=== PATIENT | male | born 1995 ===

== ENCOUNTER 2021-12-15 10:06 | Inpatient (IN) | payer MEDICAID, OTHER ==
[2021-12-15] VITALS (37 sets, daily range): BP systolic 64–161; BP diastolic 25–110
[~2021-12-15] VITALS: Ht 175.3 cm; Wt 57.1 kg
[2021-12-15] MEDS ORDERED: NOREPINEPHRINE 8 MG/250ML KIT 250 ML IV ONE (10:15)
[2021-12-15] MEDS ORDERED: MIDAZOLAM DRIP 50 mg/50mL 50 ML IV ONE (10:16)
[2021-12-15 10:40] LABS: Urine WBC None Seen /hpf (0 - 3)
[2021-12-15] MEDS ORDERED: SODIUM BICARBONATE 8.4 % INJ 50ML VIAL IV ONE ×4 (10:44→16:00)
[2021-12-15] MEDS: NOREPINEPHRINE 8 MG/250ML KIT 250 ML IV SCH ×3 (10:45→21:56)
[2021-12-15 10:56] LABS: Albumin 2.2 g/dL (3.4-5.0); Calcium 9.3 mg/dL (8.5-10.1); Magnesium 3.9 mg/dL (1.6-2.6)
[2021-12-15 11:00] LABS: Bilirubin, Total 0.3 mg/dL (0.2-1.0); Total Protein 5.4 g/dL (6.4-8.2)
[2021-12-15] MEDS: MIDAZOLAM DRIP 50 mg/50mL 50 ML IV SCH ×2 (11:00→20:40)
[2021-12-15 11:15] LABS: Amphetamine Screen, Urine NEGATIVE (NEGATIVE); Barbiturate Scree,Urine NEGATIVE (NEGATIVE); Benzodiazephine Screen, Urine NEGATIVE (NEGATIVE); Cannabinoid Screen, Urine POSITIVE (NEGATIVE); Cocaine Screen, Urine POSITIVE (NEGATIVE); Phencyclidine Screen, Urine NEGATIVE (NEGATIVE)
[2021-12-15] MEDS ORDERED: DexAMETHasone SOD PHOS 10MG/1ML VIAL INJ IV ONE (11:15)
[2021-12-15 11:16] LABS: Basophils # (auto) 0 10 ^3/uL (0-0.2); Eosinophils # (auto) 0 10 ^3/uL (0-0.8); Hemoglobin 12.5 g/dL (13.5-17.5); Lymphocytes # (auto) 1.4 10 ^3/uL (0.4-5.4); Monocytes # (auto) 0.7 10 ^3/uL (0-1.3); Neutrophils # (auto) 8.4 10 ^3/uL (1.6-8.6); Neutrophils % (auto) 79.7 % (37.0-80.0); Nucleated Red Blood Cells % 0.2 %; Red Blood Cells 4.29 10^6/uL (4.5-5.90); White Blood Cell 10.5 10^3/uL (4.4-10.8)
[2021-12-15 11:21] LABS: Basophils % (auto) 0.2 % (0.0-2.0); Eosinophils % (auto) 0.4 % (0.0-7.0); Hematocrit 41.3 % (41.0-53.0); Lymphocytes % (auto) 12.9 % (10.0-50.0); Mean Corpuscular Hgb Conc. 30.2 g/dL (32.0-36.0); Mean Corpuscular Volume 96.1 fL (80.0-100.0); Monocytes % (auto) 6.8 % (0.0-12.0); Red Cell Distribution Width 13.6 % (11.8-14.3)
[2021-12-15 11:22] LABS: Opiate Scree,Urine NEGATIVE (NEGATIVE)
[2021-12-15 11:43] LABS: Urine Bacteria NONE SEEN /hpf (None Seen); Urine Blood TRACE /uL (Negative); Urine Mucus FEW (None Seen); Urine Specific Gravity 1.026 (1.001-1.035); Urine Sperm PRESENT /hpf (None Seen)
[2021-12-15 12:09] LABS: Potassium 6.1 mmol/L (3.5-5.1)
[2021-12-15 12:10] LABS: BUN/Creatinine Ratio 5.8
[2021-12-15] MEDS ORDERED: PIPERACILLIN-TAZO 4.5GM 100 ML IV ONE (13:15)
[2021-12-15] MEDS: SODIUM BICARBONATE 50ML VIAL 50 ML in SOD CHL 0.45% 1,000 ML IV SCH (14:15)
[2021-12-15] MEDS ORDERED: ALBUTEROL SULF 2.5 MG/0.5ML(0.5%) NEB SOLN NEB ONE (15:15)
[2021-12-15] MEDS ORDERED: CALCIUM CHL 100MG/ML 1,000 MG in D5W 5% 100 ML IV ONE (15:15)
[2021-12-15 16:11] LABS: BUN/Creatinine Ratio 9.3; Calcium 6.9 mg/dL (8.5-10.1)
[2021-12-15] MEDS: VASOPRESSIN 50 UNITS in D5W 5% 247.5 ML IV SCH (16:15)
[2021-12-15 16:38] LABS: Potassium 5.8 mmol/L (3.5-5.1)
[2021-12-15 16:42] LABS: Lipase 128 U/L (73-393)
[2021-12-15 16:44] LABS: INR 1.88 (0.9-1.15)
[2021-12-15 17:01] LABS: Creatine Kinase IFCC 4531 U/L (39-308)
[2021-12-15] MEDS: PROPOFOL 100 ML IV SCH (20:00)
[2021-12-15] MEDS: PHENYLEPHRINE IV 250 ML IV SCH (20:00)
[2021-12-16] VITALS (105 sets, daily range): BP systolic 105–160; BP diastolic 46–98
[2021-12-16] MEDS: PHENYLEPHRINE IV 250 ML IV SCH ×3 (00:20→17:00)
[2021-12-16] MEDS: MIDAZOLAM DRIP 50 mg/50mL 50 ML IV SCH ×2 (02:48→09:57)
[2021-12-16] MEDS: NOREPINEPHRINE 8 MG/250ML KIT 250 ML IV SCH (03:40)
[2021-12-16 03:55] LABS: Basophils # (auto) 0 10 ^3/uL (0-0.2); Basophils % (auto) 0.2 % (0.0-2.0); Eosinophils # (auto) 0 10 ^3/uL (0-0.8); Hematocrit 39.3 % (41.0-53.0); Hemoglobin 12.9 g/dL (13.5-17.5); Lymphocytes # (auto) 0.6 10 ^3/uL (0.4-5.4); Lymphocytes % (auto) 3.3 % (10.0-50.0); Mean Corpuscular Hgb Conc. 32.9 g/dL (32.0-36.0); Mean Corpuscular Volume 87.9 fL (80.0-100.0); Monocytes # (auto) 0.4 10 ^3/uL (0-1.3); Monocytes % (auto) 2.1 % (0.0-12.0); Neutrophils # (auto) 17.8 10 ^3/uL (1.6-8.6); Neutrophils % (auto) 94.4 % (37.0-80.0); Red Blood Cells 4.47 10^6/uL (4.5-5.90); Red Cell Distribution Width 12.7 % (11.8-14.3); White Blood Cell 18.9 10^3/uL (4.4-10.8)
[2021-12-16 04:11] LABS: Albumin 2.5 g/dL (3.4-5.0); Calcium 7.4 mg/dL (8.5-10.1); Magnesium 1.8 mg/dL (1.6-2.6); Potassium 4.6 mmol/L (3.5-5.1)
[2021-12-16 04:29] LABS: Bilirubin, Total 0.4 mg/dL (0.2-1.0); Total Protein 5.3 g/dL (6.4-8.2)
[2021-12-16] MEDS: SODIUM BICARBONATE 50ML VIAL 50 ML in SOD CHL 0.45% 1,000 ML IV SCH (05:55)
[2021-12-16] MEDS: SODIUM CHLORIDE 0.9% 1,000 ML IV SCH ×3 (09:58→22:24)
[2021-12-16] MEDS: PIPERACILLIN-TAZOB 3.375GM 100 ML IV SCH ×2 (09:58→18:19)
[2021-12-16] MEDS ORDERED: FUROSEMIDE 100 MG/10ML VIAL IV ONE (11:45)
[2021-12-16] MEDS: PROPOFOL 100 ML IV SCH (13:45)
[2021-12-16] MEDS: VASOPRESSIN 50 UNITS in D5W 5% 247.5 ML IV SCH (15:27)
[2021-12-16] MEDS: ALBUTEROL SULF 2.5 MG/0.5ML(0.5%) NEB SOLN NEB SCH ×2 (18:51→23:47)
[2021-12-16] MEDS: IPRATROPIUM BROM 0.5 MG/2.5ML INH SOL NEB SCH ×2 (18:51→23:47)
[2021-12-17] VITALS (100 sets, daily range): BP systolic 115–155; BP diastolic 51–100
[2021-12-17] MEDS: PIPERACILLIN-TAZOB 3.375GM 100 ML IV SCH ×2 (00:31→08:18)
[2021-12-17 04:48] LABS: Basophils # (auto) 0 10 ^3/uL (0-0.2); Basophils % (auto) 0.1 % (0.0-2.0); Eosinophils # (auto) 0 10 ^3/uL (0-0.8); Eosinophils % (auto) 0.1 % (0.0-7.0); Hemoglobin 11.4 g/dL (13.5-17.5); Lymphocytes # (auto) 0.3 10 ^3/uL (0.4-5.4); Lymphocytes % (auto) 1.2 % (10.0-50.0); Mean Corpuscular Hemoglobin 28.6 pg (28.0-32.0); Mean Corpuscular Hgb Conc. 33.5 g/dL (32.0-36.0); Mean Corpuscular Volume 85.5 fL (80.0-100.0); Monocytes # (auto) 0.8 10 ^3/uL (0-1.3); Monocytes % (auto) 3.2 % (0.0-12.0); Neutrophils # (auto) 22.5 10 ^3/uL (1.6-8.6); Neutrophils % (auto) 95.4 % (37.0-80.0); Nucleated Red Blood Cells % 0.1 %; Red Blood Cells 3.97 10^6/uL (4.5-5.90); Red Cell Distribution Width 12.8 % (11.8-14.3); White Blood Cell 23.6 10^3/uL (4.4-10.8)
[2021-12-17 04:56] LABS: Albumin 2.4 g/dL (3.4-5.0); Calcium 6.8 mg/dL (8.5-10.1); Potassium 4.9 mmol/L (3.5-5.1)
[2021-12-17 05:23] LABS: Bilirubin, Total 0.6 mg/dL (0.2-1.0); Total Protein 5.3 g/dL (6.4-8.2)
[2021-12-17] MEDS: SODIUM CHLORIDE 0.9% 1,000 ML IV SCH (05:32)
[2021-12-17] MEDS ORDERED: BUMETANIDE 2.5mg/10ml (0.25 mg/ml) INJ IV ONE (06:15)
[2021-12-17] MEDS: ALBUTEROL SULF 2.5 MG/0.5ML(0.5%) NEB SOLN NEB SCH ×4 (06:25→23:05)
[2021-12-17] MEDS: IPRATROPIUM BROM 0.5 MG/2.5ML INH SOL NEB SCH ×4 (06:25→23:05)
[2021-12-17] MEDS: MIDAZOLAM DRIP 50 mg/50mL 50 ML IV SCH ×2 (09:04→16:33)
[2021-12-17] MEDS: PHENYLEPHRINE IV 250 ML IV SCH ×3 (09:04→18:00)
[2021-12-17] MEDS: NOREPINEPHRINE 8 MG/250ML KIT 250 ML IV SCH (10:45)
[2021-12-17] MEDS: PROPOFOL 100 ML IV SCH (13:45)
[2021-12-17 15:08] LABS: Hepatitis C Antibody Negative (Negative)
[2021-12-17 15:09] LABS: Hepatitis A Ab IgM Negative; Hepatitis B Core IgM Negative
[2021-12-17] MEDS: VASOPRESSIN 50 UNITS in D5W 5% 247.5 ML IV SCH (16:15)
[2021-12-17] MEDS: PIPERACILLIN-TAZOB 2.25GM 50 ML IV SCH (18:21)
[2021-12-18] VITALS (106 sets, daily range): BP systolic 90–206; BP diastolic 31–127
[2021-12-18] MEDS: PIPERACILLIN-TAZOB 2.25GM 50 ML IV SCH ×3 (01:37→17:42)
[2021-12-18] MEDS: PHENYLEPHRINE IV 250 ML IV SCH ×3 (01:38→19:00)
[2021-12-18 04:43] LABS: Basophils # (auto) 0 10 ^3/uL (0-0.2); Basophils % (auto) 0.2 % (0.0-2.0); Eosinophils # (auto) 0 10 ^3/uL (0-0.8); Eosinophils % (auto) 0.1 % (0.0-7.0); Hematocrit 31.2 % (41.0-53.0); Hemoglobin 10.3 g/dL (13.5-17.5); Lymphocytes # (auto) 0.3 10 ^3/uL (0.4-5.4); Lymphocytes % (auto) 1.4 % (10.0-50.0); Mean Corpuscular Hemoglobin 28.5 pg (28.0-32.0); Mean Corpuscular Volume 86.3 fL (80.0-100.0); Monocytes # (auto) 0.9 10 ^3/uL (0-1.3); Neutrophils # (auto) 21.7 10 ^3/uL (1.6-8.6); Neutrophils % (auto) 94.3 % (37.0-80.0); Nucleated Red Blood Cells % 0.1 %; Red Blood Cells 3.62 10^6/uL (4.5-5.90); Red Cell Distribution Width 12.8 % (11.8-14.3)
[2021-12-18] MEDS: MIDAZOLAM DRIP 50 mg/50mL 50 ML IV SCH ×2 (05:03→14:00)
[2021-12-18 05:27] LABS: Albumin 2.2 g/dL (3.4-5.0); Bilirubin, Total 0.6 mg/dL (0.2-1.0); Total Protein 5.2 g/dL (6.4-8.2)
[2021-12-18] MEDS: ALBUTEROL SULF 2.5 MG/0.5ML(0.5%) NEB SOLN NEB SCH ×3 (05:59→18:35)
[2021-12-18] MEDS: IPRATROPIUM BROM 0.5 MG/2.5ML INH SOL NEB SCH ×3 (06:00→18:35)
[2021-12-18 08:24] LABS: INR 1.19 (0.9-1.15)
[2021-12-18] MEDS ORDERED: HEPARIN 1,000 UNITS/ml 1ML VIAL ONE (10:21)
[2021-12-18] MEDS: NOREPINEPHRINE 8 MG/250ML KIT 250 ML IV SCH (10:45)
[2021-12-18] MEDS ORDERED: SODIUM CHL 0.9% 1000 ML BAG XX ONE (12:45)
[2021-12-18] MEDS: PROPOFOL 100 ML IV SCH (13:45)
[2021-12-18] MEDS: VASOPRESSIN 50 UNITS in D5W 5% 247.5 ML IV SCH (16:15)
[2021-12-18 17:01] LABS: Calcium 7.6 mg/dL (8.5-10.1); Potassium 4.1 mmol/L (3.5-5.1)
[2021-12-19] VITALS (108 sets, daily range): BP systolic 119–192; BP diastolic 59–109
[2021-12-19] MEDS: IPRATROPIUM BROM 0.5 MG/2.5ML INH SOL NEB SCH ×4 (00:13→18:17)
[2021-12-19] MEDS: ALBUTEROL SULF 2.5 MG/0.5ML(0.5%) NEB SOLN NEB SCH ×4 (00:13→18:17)
[2021-12-19] MEDS: PIPERACILLIN-TAZOB 2.25GM 50 ML IV SCH ×3 (01:50→17:37)
[2021-12-19] MEDS: PHENYLEPHRINE IV 250 ML IV SCH ×3 (01:58→20:00)
[2021-12-19 04:10] LABS: Basophils # (auto) 0 10 ^3/uL (0-0.2); Basophils % (auto) 0.1 % (0.0-2.0); Eosinophils # (auto) 0 10 ^3/uL (0-0.8); Hematocrit 28.6 % (41.0-53.0); Hemoglobin 9.9 g/dL (13.5-17.5); Lymphocytes # (auto) 0.8 10 ^3/uL (0.4-5.4); Lymphocytes % (auto) 4.6 % (10.0-50.0); Mean Corpuscular Hemoglobin 29.2 pg (28.0-32.0); Mean Corpuscular Hgb Conc. 34.5 g/dL (32.0-36.0); Mean Corpuscular Volume 84.7 fL (80.0-100.0); Monocytes % (auto) 5.7 % (0.0-12.0); Neutrophils # (auto) 15.8 10 ^3/uL (1.6-8.6); Neutrophils % (auto) 89.6 % (37.0-80.0); Nucleated Red Blood Cells % 0.2 %; Red Blood Cells 3.38 10^6/uL (4.5-5.90); Red Cell Distribution Width 12.9 % (11.8-14.3); White Blood Cell 17.7 10^3/uL (4.4-10.8)
[2021-12-19 04:26] LABS: Albumin 2.2 g/dL (3.4-5.0); Calcium 7.8 mg/dL (8.5-10.1); Magnesium 2.4 mg/dL (1.6-2.6); Potassium 3.9 mmol/L (3.5-5.1)
[2021-12-19 04:36] LABS: Bilirubin, Total 0.6 mg/dL (0.2-1.0); Phosphorus 5.1 mg/dL (2.5-4.90); Total Protein 5.2 g/dL (6.4-8.2)
[2021-12-19 04:46] LABS: BUN/Creatinine Ratio 8.8
[2021-12-19] MEDS ORDERED: hydrALAZINE HCL 20 MG/ML VL ONE (04:54)
[2021-12-19] MEDS ORDERED: hydrALAZINE HCL 20 MG/ML VL IV ONE (05:00)
[2021-12-19] MEDS: ENOXAPARIN SOD 80 MG/0.8ML SYRINGE SC SCH (09:36)
[2021-12-19] MEDS: NOREPINEPHRINE 8 MG/250ML KIT 250 ML IV SCH (09:38)
[2021-12-19] MEDS ORDERED: FUROSEMIDE 100 MG/10ML VIAL IV ONE ×2 (10:15→18:00)
[2021-12-19] MEDS: PROPOFOL 100 ML IV SCH (12:02)
[2021-12-19] MEDS: VASOPRESSIN 50 UNITS in D5W 5% 247.5 ML IV SCH (15:53)
[2021-12-20] VITALS (69 sets, daily range): BP systolic 89–129; BP diastolic 37–66
[2021-12-20] MEDS: IPRATROPIUM BROM 0.5 MG/2.5ML INH SOL NEB SCH ×3 (00:11→18:33)
[2021-12-20] MEDS: ALBUTEROL SULF 2.5 MG/0.5ML(0.5%) NEB SOLN NEB SCH ×3 (00:11→18:33)
[2021-12-20] MEDS: PIPERACILLIN-TAZOB 2.25GM 50 ML IV SCH ×3 (02:27→17:49)
[2021-12-20] MEDS: PHENYLEPHRINE IV 250 ML IV SCH (04:20)
[2021-12-20 04:28] LABS: Calcium 8.1 mg/dL (8.5-10.1)
[2021-12-20 04:31] LABS: BUN/Creatinine Ratio 9.1
[2021-12-20] MEDS ORDERED: SODIUM CHL 0.9% 1000 ML BAG XX ONE (07:00)
[2021-12-20] MEDS: NOREPINEPHRINE 8 MG/250ML KIT 250 ML IV SCH (07:00)
[2021-12-20] MEDS: ENOXAPARIN SOD 80 MG/0.8ML SYRINGE SC SCH (09:22)
[2021-12-20] MEDS: PROPOFOL 100 ML IV SCH (13:45)
[2021-12-20] MEDS ORDERED: LIDOCAINE 1% (LOCAL ANESTH.) PF 5ml SDV ID ONE (16:45)
[2021-12-20] MEDS: SODIUM CHLOR 0.9% PF (SALINE LOCK) 10ML VIAL/SYR IV SCH (21:31)
[2021-12-21] VITALS (59 sets, daily range): BP systolic 111–157; BP diastolic 56–85
[2021-12-21] MEDS: IPRATROPIUM BROM 0.5 MG/2.5ML INH SOL NEB SCH ×5 (00:28→18:15)
[2021-12-21] MEDS: ALBUTEROL SULF 2.5 MG/0.5ML(0.5%) NEB SOLN NEB SCH ×5 (00:28→18:15)
[2021-12-21] MEDS: PIPERACILLIN-TAZOB 2.25GM 50 ML IV SCH ×3 (02:10→17:27)
[2021-12-21 04:53] LABS: Basophils # (auto) 0 10 ^3/uL (0-0.2); Basophils % (auto) 0.1 % (0.0-2.0); Eosinophils # (auto) 0.2 10 ^3/uL (0-0.8); Eosinophils % (auto) 1.7 % (0.0-7.0); Hemoglobin 9.5 g/dL (13.5-17.5)
[2021-12-21 04:56] LABS: Hematocrit 27.6 % (41.0-53.0); Lymphocytes # (auto) 1.2 10 ^3/uL (0.4-5.4); Lymphocytes % (auto) 9.7 % (10.0-50.0); Mean Corpuscular Hemoglobin 29.3 pg (28.0-32.0); Mean Corpuscular Hgb Conc. 34.4 g/dL (32.0-36.0); Mean Corpuscular Volume 85.2 fL (80.0-100.0); Monocytes # (auto) 1.5 10 ^3/uL (0-1.3); Monocytes % (auto) 12.6 % (0.0-12.0); Neutrophils % (auto) 75.9 % (37.0-80.0); Nucleated Red Blood Cells % 0.1 %; Red Blood Cells 3.24 10^6/uL (4.5-5.90); Red Cell Distribution Width 12.7 % (11.8-14.3); White Blood Cell 11.8 10^3/uL (4.4-10.8)
[2021-12-21 05:06] LABS: INR 1.21 (0.9-1.15); Partial Thromboplastin Time 34.2 sec (23.6-33.0)
[2021-12-21 05:08] LABS: Calcium 8.3 mg/dL (8.5-10.1); Potassium 4.8 mmol/L (3.5-5.1)
[2021-12-21 05:10] LABS: BUN/Creatinine Ratio 7.5
[2021-12-21 05:12] LABS: Bilirubin, Total 0.4 mg/dL (0.2-1.0); Total Protein 5.7 g/dL (6.4-8.2)
[2021-12-21] MEDS: SODIUM CHLOR 0.9% PF (SALINE LOCK) 10ML VIAL/SYR IV SCH ×2 (09:04→22:20)
[2021-12-21] MEDS: ENOXAPARIN SOD 80 MG/0.8ML SYRINGE SC SCH (09:04)
[2021-12-21] MEDS ORDERED: HEPARIN 1,000 UNITS/ml 1ML VIAL IV ONE ×2 (10:15→10:30)
[2021-12-21] MEDS: NOREPINEPHRINE 8 MG/250ML KIT 250 ML IV SCH (10:45)
[2021-12-21] MEDS ORDERED: hydrALAZINE HCL 20 MG/ML VL ONE (15:09)
[2021-12-21] MEDS ORDERED: METOCLOPRAMIDE HCL 5MG/ml INJ 2ml VIAL ONE (16:58)
[2021-12-21] MEDS ORDERED: METOPROLOL TARTRATE 1MG/1ML-5ML VIAL IV ONE (16:58)
[2021-12-21] MEDS: METOCLOPRAMIDE HCL 5MG/ml INJ 2ml VIAL IV SCH (22:20)
[2021-12-22] VITALS (57 sets, daily range): BP systolic 80–172; BP diastolic 51–91
[2021-12-22] MEDS: ALBUTEROL SULF 2.5 MG/0.5ML(0.5%) NEB SOLN NEB SCH ×5 (00:36→18:12)
[2021-12-22] MEDS: IPRATROPIUM BROM 0.5 MG/2.5ML INH SOL NEB SCH ×4 (00:36→18:12)
[2021-12-22] MEDS: PIPERACILLIN-TAZOB 2.25GM 50 ML IV SCH ×3 (02:28→17:27)
[2021-12-22 04:41] LABS: Basophils # (auto) 0 10 ^3/uL (0-0.2); Basophils % (auto) 0.1 % (0.0-2.0); Eosinophils # (auto) 0.3 10 ^3/uL (0-0.8); Eosinophils % (auto) 2.3 % (0.0-7.0); Hematocrit 29.8 % (41.0-53.0); Lymphocytes # (auto) 0.7 10 ^3/uL (0.4-5.4); Lymphocytes % (auto) 5.8 % (10.0-50.0); Mean Corpuscular Hemoglobin 28.6 pg (28.0-32.0); Mean Corpuscular Hgb Conc. 33.5 g/dL (32.0-36.0); Mean Corpuscular Volume 85.3 fL (80.0-100.0); Monocytes # (auto) 1.9 10 ^3/uL (0-1.3); Monocytes % (auto) 14.8 % (0.0-12.0); Neutrophils # (auto) 9.8 10 ^3/uL (1.6-8.6); Nucleated Red Blood Cells % 0.1 %; Red Cell Distribution Width 12.9 % (11.8-14.3); White Blood Cell 12.8 10^3/uL (4.4-10.8)
[2021-12-22 04:57] LABS: Albumin 1.9 g/dL (3.4-5.0); BUN/Creatinine Ratio 7.3; Bilirubin, Total 0.5 mg/dL (0.2-1.0); Calcium 8.5 mg/dL (8.5-10.1)
[2021-12-22 04:58] LABS: INR 1.18 (0.9-1.15)
[2021-12-22 05:15] LABS: Potassium 5.6 mmol/L (3.5-5.1)
[2021-12-22] MEDS: METOPROLOL TARTRATE 1MG/1ML-5ML VIAL IV PRN (06:31)
[2021-12-22] MEDS: METOCLOPRAMIDE HCL 5MG/ml INJ 2ml VIAL IV SCH ×2 (09:25→21:55)
[2021-12-22] MEDS: SODIUM CHLOR 0.9% PF (SALINE LOCK) 10ML VIAL/SYR IV SCH ×2 (09:27→21:55)
[2021-12-22] MEDS: NOREPINEPHRINE 8 MG/250ML KIT 250 ML IV SCH (10:45)
[2021-12-23] VITALS (47 sets, daily range): BP systolic 126–210; BP diastolic 58–133
[2021-12-23] MEDS: IPRATROPIUM BROM 0.5 MG/2.5ML INH SOL NEB SCH ×4 (00:11→18:43)
[2021-12-23] MEDS: ALBUTEROL SULF 2.5 MG/0.5ML(0.5%) NEB SOLN NEB SCH ×4 (00:11→18:43)
[2021-12-23] MEDS: PIPERACILLIN-TAZOB 2.25GM 50 ML IV SCH ×3 (01:49→17:53)
[2021-12-23 09:12] LABS: Basophils # (auto) 0 10 ^3/uL (0-0.2); Basophils % (auto) 0.2 % (0.0-2.0); Eosinophils # (auto) 0.3 10 ^3/uL (0-0.8); Hemoglobin 9.8 g/dL (13.5-17.5); Lymphocytes # (auto) 0.8 10 ^3/uL (0.4-5.4); Lymphocytes % (auto) 5.9 % (10.0-50.0); Mean Corpuscular Hemoglobin 28.8 pg (28.0-32.0); Mean Corpuscular Hgb Conc. 33.8 g/dL (32.0-36.0); Mean Corpuscular Volume 85.1 fL (80.0-100.0); Monocytes # (auto) 2.2 10 ^3/uL (0-1.3); Monocytes % (auto) 16.8 % (0.0-12.0); Neutrophils # (auto) 9.6 10 ^3/uL (1.6-8.6); Neutrophils % (auto) 75.1 % (37.0-80.0); Nucleated Red Blood Cells % 0.1 %; Red Blood Cells 3.41 10^6/uL (4.5-5.90); White Blood Cell 12.8 10^3/uL (4.4-10.8)
[2021-12-23 09:28] LABS: Albumin 1.7 g/dL (3.4-5.0); Calcium 9.3 mg/dL (8.5-10.1); Potassium 4.8 mmol/L (3.5-5.1)
[2021-12-23 09:33] LABS: BUN/Creatinine Ratio 6.7; Bilirubin, Total 0.4 mg/dL (0.2-1.0); Total Protein 6.1 g/dL (6.4-8.2)
[2021-12-23] MEDS: METOCLOPRAMIDE HCL 5MG/ml INJ 2ml VIAL IV SCH ×2 (09:56→22:11)
[2021-12-23] MEDS: SODIUM CHLOR 0.9% PF (SALINE LOCK) 10ML VIAL/SYR IV SCH ×2 (09:56→22:11)
[2021-12-23] MEDS: NOREPINEPHRINE 8 MG/250ML KIT 250 ML IV SCH (09:57)
[2021-12-23] MEDS: METOPROLOL TARTRATE 1MG/1ML-5ML VIAL IV PRN (21:41)
[2021-12-23] MEDS ORDERED: hydrALAZINE HCL 20 MG/ML VL IV PRN (22:00)
[2021-12-24] VITALS (68 sets, daily range): BP systolic 76–238; BP diastolic 27–131
[2021-12-24] MEDS: IPRATROPIUM BROM 0.5 MG/2.5ML INH SOL NEB SCH ×5 (00:43→23:54)
[2021-12-24] MEDS: ALBUTEROL SULF 2.5 MG/0.5ML(0.5%) NEB SOLN NEB SCH ×5 (00:43→23:54)
[2021-12-24] MEDS: PIPERACILLIN-TAZOB 2.25GM 50 ML IV SCH ×3 (03:00→18:00)
[2021-12-24 04:43] LABS: Basophils # (auto) 0 10 ^3/uL (0-0.2); Basophils % (auto) 0.1 % (0.0-2.0); Eosinophils # (auto) 0.2 10 ^3/uL (0-0.8); Eosinophils % (auto) 1.4 % (0.0-7.0); Hematocrit 28.3 % (41.0-53.0); Hemoglobin 9.4 g/dL (13.5-17.5); Lymphocytes % (auto) 5.7 % (10.0-50.0); Mean Corpuscular Hemoglobin 28.4 pg (28.0-32.0); Mean Corpuscular Hgb Conc. 33.2 g/dL (32.0-36.0); Mean Corpuscular Volume 85.5 fL (80.0-100.0); Monocytes # (auto) 2.9 10 ^3/uL (0-1.3); Monocytes % (auto) 16.1 % (0.0-12.0); Neutrophils # (auto) 13.7 10 ^3/uL (1.6-8.6); Neutrophils % (auto) 76.7 % (37.0-80.0); Nucleated Red Blood Cells % 0.1 %; White Blood Cell 17.9 10^3/uL (4.4-10.8)
[2021-12-24 04:58] LABS: Calcium 9.7 mg/dL (8.5-10.1)
[2021-12-24 05:00] LABS: BUN/Creatinine Ratio 7.5
[2021-12-24 05:22] LABS: Potassium 6.1 mmol/L (3.5-5.1)
[2021-12-24] MEDS: SODIUM CHLOR 0.9% PF (SALINE LOCK) 10ML VIAL/SYR IV SCH ×2 (09:24→22:44)
[2021-12-24] MEDS: METOCLOPRAMIDE HCL 5MG/ml INJ 2ml VIAL IV SCH ×2 (09:24→22:43)
[2021-12-24] MEDS: NOREPINEPHRINE 8 MG/250ML KIT 250 ML IV SCH (09:57)
[2021-12-24] MEDS ORDERED: SODIUM CHL 0.9% 1000 ML BAG XX ONE (11:00)
[2021-12-24] MEDS: SODIUM ZIRCONIUM CYCL 10 GM PAK GT SCH ×2 (14:00→22:43)
[2021-12-24] MEDS ORDERED: ALBUMIN 25% 100 ML IV ONE (14:30)
[2021-12-24] MEDS ORDERED: EPOETIN ALFA-EPBX 10,000 UNIT/1ML VIAL SC ONE (21:00)
[2021-12-25] VITALS (95 sets, daily range): BP systolic 84–148; BP diastolic 29–70
[2021-12-25] MEDS: PIPERACILLIN-TAZOB 2.25GM 50 ML IV SCH ×3 (02:45→18:58)
[2021-12-25 04:21] LABS: Basophils # (auto) 0 10 ^3/uL (0-0.2); Eosinophils # (auto) 0.2 10 ^3/uL (0-0.8); Lymphocytes # (auto) 1.1 10 ^3/uL (0.4-5.4); Mean Corpuscular Hemoglobin 28.9 pg (28.0-32.0); Red Blood Cells 2.86 10^6/uL (4.5-5.90)
[2021-12-25 04:31] LABS: Basophils % (auto) 0.2 % (0.0-2.0); Eosinophils % (auto) 1.6 % (0.0-7.0); Hematocrit 24.2 % (41.0-53.0); Hemoglobin 8.3 g/dL (13.5-17.5); Lymphocytes % (auto) 7.4 % (10.0-50.0); Mean Corpuscular Hgb Conc. 34.2 g/dL (32.0-36.0); Mean Corpuscular Volume 84.6 fL (80.0-100.0); Monocytes % (auto) 13.9 % (0.0-12.0); Neutrophils % (auto) 76.9 % (37.0-80.0); Nucleated Red Blood Cells % 0.1 %; Red Cell Distribution Width 12.9 % (11.8-14.3); White Blood Cell 14.3 10^3/uL (4.4-10.8)
[2021-12-25 04:36] LABS: BUN/Creatinine Ratio 6.8; Calcium 9.5 mg/dL (8.5-10.1); Potassium 4.4 mmol/L (3.5-5.1)
[2021-12-25] MEDS: SODIUM ZIRCONIUM CYCL 10 GM PAK GT SCH (05:48)
[2021-12-25] MEDS: ALBUTEROL SULF 2.5 MG/0.5ML(0.5%) NEB SOLN NEB SCH ×3 (07:55→18:59)
[2021-12-25] MEDS: IPRATROPIUM BROM 0.5 MG/2.5ML INH SOL NEB SCH ×3 (07:55→19:00)
[2021-12-25] MEDS: NOREPINEPHRINE 8 MG/250ML KIT 250 ML IV SCH (09:30)
[2021-12-25] MEDS: METOCLOPRAMIDE HCL 5MG/ml INJ 2ml VIAL IV SCH ×2 (09:49→22:14)
[2021-12-25] MEDS: SODIUM CHLOR 0.9% PF (SALINE LOCK) 10ML VIAL/SYR IV SCH ×2 (09:49→22:14)
[2021-12-25] MEDS: CALCIUM ACETATE 667 MG CAP NG SCH ×2 (14:13→22:14)
[2021-12-26] VITALS (99 sets, daily range): BP systolic 86–183; BP diastolic 28–91
[2021-12-26] MEDS: IPRATROPIUM BROM 0.5 MG/2.5ML INH SOL NEB SCH ×4 (00:02→18:25)
[2021-12-26] MEDS: ALBUTEROL SULF 2.5 MG/0.5ML(0.5%) NEB SOLN NEB SCH ×4 (00:03→18:25)
[2021-12-26] MEDS: PIPERACILLIN-TAZOB 2.25GM 50 ML IV SCH ×3 (02:37→18:30)
[2021-12-26 04:23] LABS: Basophils # (auto) 0 10 ^3/uL (0-0.2); Basophils % (auto) 0.2 % (0.0-2.0); Eosinophils # (auto) 0.2 10 ^3/uL (0-0.8); Eosinophils % (auto) 1.8 % (0.0-7.0); Hematocrit 23.4 % (41.0-53.0); Lymphocytes # (auto) 1.2 10 ^3/uL (0.4-5.4); Lymphocytes % (auto) 9.5 % (10.0-50.0); Mean Corpuscular Hemoglobin 28.5 pg (28.0-32.0); Mean Corpuscular Volume 83.7 fL (80.0-100.0); Monocytes # (auto) 2.1 10 ^3/uL (0-1.3); Monocytes % (auto) 17.3 % (0.0-12.0); Neutrophils # (auto) 8.8 10 ^3/uL (1.6-8.6); Neutrophils % (auto) 71.2 % (37.0-80.0); Nucleated Red Blood Cells % 0.2 %; Red Cell Distribution Width 13.1 % (11.8-14.3); White Blood Cell 12.3 10^3/uL (4.4-10.8)
[2021-12-26 04:40] LABS: BUN/Creatinine Ratio 8.1; Calcium 9.9 mg/dL (8.5-10.1); Potassium 4.1 mmol/L (3.5-5.1)
[2021-12-26] MEDS: CALCIUM ACETATE 667 MG CAP NG SCH ×3 (06:05→22:13)
[2021-12-26] MEDS ORDERED: SODIUM CHL 0.9% 1000 ML BAG XX ONE (07:00)
[2021-12-26] MEDS: SODIUM CHLOR 0.9% PF (SALINE LOCK) 10ML VIAL/SYR IV SCH ×2 (09:38→22:13)
[2021-12-26] MEDS: NOREPINEPHRINE 8 MG/250ML KIT 250 ML IV SCH (10:45)
[2021-12-26] MEDS: METOCLOPRAMIDE HCL 5MG/ml INJ 2ml VIAL IV SCH ×2 (11:15→22:14)
[2021-12-26] MEDS ORDERED: Nepro With Carb Steady 1 Liter Bottle GT SCH (15:45)
[2021-12-26] MEDS ORDERED: EPOETIN ALFA-EPBX 10,000 UNIT/1ML VIAL SC ONE (21:00)
[2021-12-26 22:39] LABS: Albumin 2.1 g/dL (3.4-5.0); Calcium 9.5 mg/dL (8.5-10.1); Potassium 4.6 mmol/L (3.5-5.1)
[2021-12-26 22:43] LABS: Bilirubin, Total 0.4 mg/dL (0.2-1.0); Total Protein 7.2 g/dL (6.4-8.2)
[2021-12-27] VITALS (100 sets, daily range): BP systolic 70–165; BP diastolic 23–83
[2021-12-27] MEDS: IPRATROPIUM BROM 0.5 MG/2.5ML INH SOL NEB SCH ×4 (00:14→19:01)
[2021-12-27] MEDS: ALBUTEROL SULF 2.5 MG/0.5ML(0.5%) NEB SOLN NEB SCH ×4 (00:14→19:01)
[2021-12-27 03:48] LABS: Hematocrit 23.5 % (41.0-53.0)
[2021-12-27] MEDS: CALCIUM ACETATE 667 MG CAP NG SCH ×3 (06:42→22:00)
[2021-12-27] MEDS ORDERED: SODIUM CHL 0.9% 1000 ML BAG XX ONE (07:00)
[2021-12-27] MEDS: SODIUM CHLOR 0.9% PF (SALINE LOCK) 10ML VIAL/SYR IV SCH ×2 (09:01→22:00)
[2021-12-27] MEDS: METOCLOPRAMIDE HCL 5MG/ml INJ 2ml VIAL IV SCH ×2 (09:01→22:50)
[2021-12-27] MEDS ORDERED: LORazepam 2MG/ML-1ML VIAL IV PRN (16:45)
[2021-12-27] MEDS ORDERED: MORPHINE SULFATE INJECTION 2 MG/ML SYRG IV PRN (16:45)
[2021-12-27] MEDS ORDERED: ONDANSETRON HCL 4 MG/2 ML VIAL IV PRN (16:45)
[2021-12-27] MEDS ORDERED: EPOETIN ALFA-EPBX 10,000 UNIT/1ML VIAL SC ONE (21:00)
[2021-12-28] VITALS (94 sets, daily range): BP systolic 75–162; BP diastolic 29–82
[2021-12-28] MEDS: ALBUTEROL SULF 2.5 MG/0.5ML(0.5%) NEB SOLN NEB SCH ×4 (00:33→19:34)
[2021-12-28] MEDS: IPRATROPIUM BROM 0.5 MG/2.5ML INH SOL NEB SCH ×4 (00:33→19:34)
[2021-12-28] MEDS: CALCIUM ACETATE 667 MG CAP NG SCH ×3 (05:51→21:39)
[2021-12-28] MEDS: METOCLOPRAMIDE HCL 5MG/ml INJ 2ml VIAL IV SCH ×2 (09:24→21:38)
[2021-12-28] MEDS: SODIUM CHLOR 0.9% PF (SALINE LOCK) 10ML VIAL/SYR IV SCH ×2 (09:25→21:39)
[2021-12-28 09:47] LABS: Hemoglobin 8.2 g/dL (13.5-17.5)
[2021-12-28 09:48] LABS: Hematocrit 24.3 % (41.0-53.0); Mean Corpuscular Hemoglobin 28.4 pg (28.0-32.0); Mean Corpuscular Hgb Conc. 33.6 g/dL (32.0-36.0); Mean Corpuscular Volume 84.5 fL (80.0-100.0); Red Blood Cells 2.87 10^6/uL (4.5-5.90); Red Cell Distribution Width 13.2 % (11.8-14.3); White Blood Cell 19.4 10^3/uL (4.4-10.8)
[2021-12-28 09:49] LABS: Albumin 1.8 g/dL (3.4-5.0); Calcium 9.6 mg/dL (8.5-10.1)
[2021-12-28 09:52] LABS: Band Neutrophils % (manual) 0; Basophils % (manual) 0 (0.0-2.0); Blast Cells 0; Metamyelocytes % 0; Myelocytes % 0; Promyelocytes % 0; Reactive Lymphocytes 0
[2021-12-28 09:53] LABS: BUN/Creatinine Ratio 9.6; Bilirubin, Total 0.3 mg/dL (0.2-1.0)
[2021-12-28 10:02] LABS: Potassium 6.1 mmol/L (3.5-5.1)
[2021-12-28 10:25] LABS: Eosinophils % (manual) 5 (0-7); Lymphocytes % (manual) 15 (10.0-50.0); Monocytes % (manual) 16 (0-12)
[2021-12-28] MEDS: NOREPINEPHRINE 8 MG/250ML KIT 250 ML IV SCH (10:39)
[2021-12-28] MEDS ORDERED: CALCIUM GLUC 1,000mg/50ml-NS 50 ML IV ONE (11:45)
[2021-12-28] MEDS ORDERED: SODIUM CHL 0.9% 1000 ML BAG XX ONE (11:45)
[2021-12-28] MEDS ORDERED: DEXTROSE (50%) 50ML SYRG IV ONE (11:45)
[2021-12-28] MEDS ORDERED: SODIUM BICARBONATE 8.4 % INJ 50ML VIAL IV ONE (11:45)
[2021-12-28] MEDS ORDERED: InsuLIN REG 1unit/0.01ml Soln (100units/ml) IV ONE (11:45)
[2021-12-28] MEDS: SODIUM ZIRCONIUM CYCL 10 GM PAK PO SCH ×3 (11:55→21:38)
[2021-12-28] MEDS ORDERED: ALBUMIN 25% 100 ML IV ONE (12:15)
[2021-12-28] MEDS: ALBUMIN 25% 100 ML IV SCH ×2 (13:27→14:14)
[2021-12-28] MEDS ORDERED: EPOETIN ALFA-EPBX 10,000 UNIT/1ML VIAL SC ONE (21:00)
[2021-12-29] VITALS (102 sets, daily range): BP systolic 89–142; BP diastolic 34–82
[2021-12-29] MEDS: ALBUTEROL SULF 2.5 MG/0.5ML(0.5%) NEB SOLN NEB SCH ×4 (00:09→18:53)
[2021-12-29] MEDS: IPRATROPIUM BROM 0.5 MG/2.5ML INH SOL NEB SCH ×4 (00:09→18:53)
[2021-12-29 04:20] LABS: BUN/Creatinine Ratio 9.1; Calcium 9.7 mg/dL (8.5-10.1); Potassium 5.2 mmol/L (3.5-5.1)
[2021-12-29] MEDS: CALCIUM ACETATE 667 MG CAP NG SCH ×3 (06:21→21:45)
[2021-12-29] MEDS: SODIUM ZIRCONIUM CYCL 10 GM PAK PO SCH ×3 (06:21→21:45)
[2021-12-29] MEDS: NOREPINEPHRINE 8 MG/250ML KIT 250 ML IV SCH (07:45)
[2021-12-29] MEDS: METOCLOPRAMIDE HCL 5MG/ml INJ 2ml VIAL IV SCH ×2 (09:24→21:45)
[2021-12-29] MEDS: SODIUM CHLOR 0.9% PF (SALINE LOCK) 10ML VIAL/SYR IV SCH ×2 (09:24→21:45)
[2021-12-30] VITALS (62 sets, daily range): BP systolic 83–184; BP diastolic 33–88
[2021-12-30] MEDS: ALBUTEROL SULF 2.5 MG/0.5ML(0.5%) NEB SOLN NEB SCH ×3 (00:23→12:00)
[2021-12-30] MEDS: IPRATROPIUM BROM 0.5 MG/2.5ML INH SOL NEB SCH ×3 (00:23→12:00)
[2021-12-30] MEDS: CALCIUM ACETATE 667 MG CAP NG SCH ×3 (05:59→22:01)
[2021-12-30] MEDS: SODIUM ZIRCONIUM CYCL 10 GM PAK PO SCH ×3 (06:00→22:01)
[2021-12-30] MEDS: METOCLOPRAMIDE HCL 5MG/ml INJ 2ml VIAL IV SCH ×2 (09:45→22:01)
[2021-12-30] MEDS: SODIUM CHLOR 0.9% PF (SALINE LOCK) 10ML VIAL/SYR IV SCH ×2 (09:46→22:02)
[2021-12-30] MEDS: NOREPINEPHRINE 8 MG/250ML KIT 250 ML IV SCH (10:45)
[2021-12-30 11:46] LABS: Basophils # (auto) 0.1 10 ^3/uL (0-0.2); Basophils % (auto) 0.7 % (0.0-2.0); Eosinophils # (auto) 0.2 10 ^3/uL (0-0.8); Eosinophils % (auto) 1.4 % (0.0-7.0); Hemoglobin 7.9 g/dL (13.5-17.5); Lymphocytes # (auto) 1.4 10 ^3/uL (0.4-5.4); Lymphocytes % (auto) 10.1 % (10.0-50.0); Mean Corpuscular Hemoglobin 28.3 pg (28.0-32.0); Mean Corpuscular Hgb Conc. 34.1 g/dL (32.0-36.0); Monocytes # (auto) 2.2 10 ^3/uL (0-1.3); Monocytes % (auto) 16.6 % (0.0-12.0); Neutrophils # (auto) 9.6 10 ^3/uL (1.6-8.6); Neutrophils % (auto) 71.2 % (37.0-80.0); Red Blood Cells 2.78 10^6/uL (4.5-5.90); Red Cell Distribution Width 12.5 % (11.8-14.3); White Blood Cell 13.4 10^3/uL (4.4-10.8)
[2021-12-30 13:11] LABS: BUN/Creatinine Ratio 10.1
[2021-12-30 13:13] LABS: Albumin 2.2 g/dL (3.4-5.0); Bilirubin, Total 0.4 mg/dL (0.2-1.0); Calcium 9.4 mg/dL (8.5-10.1); Total Protein 7.4 g/dL (6.4-8.2)
[2021-12-30 13:17] LABS: Potassium 7.5 mmol/L (3.5-5.1)
[2021-12-30] MEDS ORDERED: SODIUM BICARBONATE 8.4% INJ 50ML SYRINGE IV ONE (14:30)
[2021-12-30] MEDS ORDERED: InsuLIN REG 1unit/0.01ml Soln (100units/ml) IV ONE (14:30)
[2021-12-30] MEDS ORDERED: DEXTROSE (50%) 50ML SYRG IV ONE (14:30)
[2021-12-30] MEDS ORDERED: CALCIUM GLUC 1,000mg/50ml-NS 50 ML IV ONE (14:30)
[2021-12-30] MEDS: BUMETANIDE INJECTION 25 MG in GIVE UN-DILUTED 0 ML IV SCH (16:00)
[2021-12-31] VITALS (44 sets, daily range): BP systolic 98–170; BP diastolic 42–113
[2021-12-31] MEDS: ALBUTEROL SULF 2.5 MG/0.5ML(0.5%) NEB SOLN NEB SCH ×3 (00:22→06:30)
[2021-12-31] MEDS: IPRATROPIUM BROM 0.5 MG/2.5ML INH SOL NEB SCH ×3 (00:23→06:30)
[2021-12-31 00:36] LABS: Albumin 2.2 g/dL (3.4-5.0); BUN/Creatinine Ratio 10.8; Calcium 8.8 mg/dL (8.5-10.1)
[2021-12-31 00:38] LABS: Bilirubin, Total 0.4 mg/dL (0.2-1.0); Total Protein 7.2 g/dL (6.4-8.2)
[2021-12-31 00:46] LABS: Potassium 7.3 mmol/L (3.5-5.1)
[2021-12-31] MEDS ORDERED: DEXTROSE 10% 250 ML IV ONE (01:30)
[2021-12-31] MEDS ORDERED: InsuLIN REG 1unit/0.01ml Soln (100units/ml) IV ONE (02:00)
[2021-12-31] MEDS ORDERED: CALCIUM GLUC 1,000mg/50ml-NS 50 ML IV ONE (02:00)
[2021-12-31] MEDS ORDERED: DEXTROSE (50%) 50ML SYRG IV ONE (02:00)
[2021-12-31] MEDS ORDERED: SODIUM BICARBONATE 8.4% INJ 50ML SYRINGE IV ONE (02:00)
[2021-12-31] MEDS: NOREPINEPHRINE 8 MG/250ML KIT 250 ML IV SCH (02:33)
[2021-12-31 04:10] LABS: Basophils # (auto) 0.1 10 ^3/uL (0-0.2); Basophils % (auto) 0.4 % (0.0-2.0); Eosinophils # (auto) 0.2 10 ^3/uL (0-0.8); Eosinophils % (auto) 1.6 % (0.0-7.0); Hematocrit 22.6 % (41.0-53.0); Hemoglobin 7.6 g/dL (13.5-17.5); Lymphocytes # (auto) 1.6 10 ^3/uL (0.4-5.4); Mean Corpuscular Hemoglobin 27.5 pg (28.0-32.0); Mean Corpuscular Hgb Conc. 33.5 g/dL (32.0-36.0); Mean Corpuscular Volume 82.3 fL (80.0-100.0); Monocytes # (auto) 2.3 10 ^3/uL (0-1.3); Monocytes % (auto) 17.5 % (0.0-12.0); Neutrophils # (auto) 9.1 10 ^3/uL (1.6-8.6); Neutrophils % (auto) 68.5 % (37.0-80.0); Red Blood Cells 2.75 10^6/uL (4.5-5.90); Red Cell Distribution Width 12.8 % (11.8-14.3); White Blood Cell 13.3 10^3/uL (4.4-10.8)
[2021-12-31 04:50] LABS: BUN/Creatinine Ratio 11.4; Bilirubin, Total 0.3 mg/dL (0.2-1.0); Calcium 8.6 mg/dL (8.5-10.1); Total Protein 6.7 g/dL (6.4-8.2)
[2021-12-31 04:59] LABS: Potassium 6.9 mmol/L (3.5-5.1)
[2021-12-31] MEDS: CALCIUM ACETATE 667 MG CAP NG SCH (05:34)
[2021-12-31] MEDS: SODIUM ZIRCONIUM CYCL 10 GM PAK PO SCH (05:34)
[2021-12-31] MEDS ORDERED: SODIUM CHL 0.9% 1000 ML BAG XX ONE (07:00)
[2021-12-31] MEDS: ALBUMIN 25% 100 ML IV SCH ×2 (08:32→09:13)
[2021-12-31] MEDS: METOCLOPRAMIDE HCL 5MG/ml INJ 2ml VIAL IV SCH (10:00)
[2021-12-31] MEDS: SODIUM CHLOR 0.9% PF (SALINE LOCK) 10ML VIAL/SYR IV SCH (10:00)
[2021-12-31] MEDS: BUMETANIDE INJECTION 25 MG in GIVE UN-DILUTED 0 ML IV SCH (10:00)
[2021-12-31] MEDS ORDERED: EPOETIN ALFA-EPBX 10,000 UNIT/1ML VIAL SC ONE (21:00)
== END 2021-12-31 11:30 | DRG 720 ==
LOC: ER 10:06 → EDBD 10:06 → TELE 13:21 → ICU WEST 15:09
PROVIDERS: ADMIT Internal Medicine; ATTEND Internal Medicine
PROC: 5A12012 Performance of Cardiac Output, Single, Manual (ICD-10-PCS; principal; 2021-12-15)
PROC: 5A1955Z Respiratory Ventilation, Greater than 96 Consecutive Hours (ICD-10-PCS; 2021-12-15)
PROC: 0BH17EZ Insertion of Endotracheal Airway into Trachea, Via Natural or Artificial Opening (ICD-10-PCS; 2021-12-15)
PROC: 05HY33Z Insertion of Infusion Device into Upper Vein, Percutaneous Approach (ICD-10-PCS; 2021-12-15)
PROC: B543ZZA Ultrasonography of Right Jugular Veins, Guidance (ICD-10-PCS; 2021-12-15)
PROC: 05HY33Z Insertion of Infusion Device into Upper Vein, Percutaneous Approach (ICD-10-PCS; 2021-12-18)
PROC: 05HY33Z Insertion of Infusion Device into Upper Vein, Percutaneous Approach (ICD-10-PCS; 2021-12-18)
PROC: B544ZZA Ultrasonography of Left Jugular Veins, Guidance (ICD-10-PCS; 2021-12-18)
PROC: 05HY33Z Insertion of Infusion Device into Upper Vein, Percutaneous Approach (ICD-10-PCS; 2021-12-20)
PROC: B54MZZA Ultrasonography of Right Upper Extremity Veins, Guidance (ICD-10-PCS; 2021-12-20)
PROC: 06HY33Z Insertion of Infusion Device into Lower Vein, Percutaneous Approach (ICD-10-PCS; 2021-12-21)
PROC: B54BZZA Ultrasonography of Right Lower Extremity Veins, Guidance (ICD-10-PCS; 2021-12-21)
PROC: 5A1D70Z Performance of Urinary Filtration, Intermittent, Less than 6 Hours Per Day (ICD-10-PCS; 2021-12-24)
PROC: 04HL33Z Insertion of Infusion Device into Left Femoral Artery, Percutaneous Approach (ICD-10-PCS; 2021-12-30)
PROC: B44LZZZ Ultrasonography of Femoral Artery (ICD-10-PCS; 2021-12-30)
DX: A41.9 Sepsis, unspecified organism (principal); I46.9 Cardiac arrest, cause unspecified; G93.6 Cerebral edema; J96.01 Acute respiratory failure with hypoxia; K72.00 Acute and subacute hepatic failure without coma; D69.6 Thrombocytopenia, unspecified; E88.09 Other disorders of plasma-protein metabolism, not elsewhere classified; G93.1 Anoxic brain damage, not elsewhere classified; M62.82 Rhabdomyolysis; R57.9 Shock, unspecified; G92.8 Other toxic encephalopathy; R65.21 Severe sepsis with septic shock; I82.622 Acute embolism and thrombosis of deep veins of left upper extremity; T40.411A Poisoning by fentanyl or fentanyl analogs, accidental (unintentional), initial encounter; Z20.822 Contact with and (suspected) exposure to COVID-19; E87.5 Hyperkalemia; N18.32 Chronic kidney disease, stage 3b; J98.11 Atelectasis; F14.10 Cocaine abuse, uncomplicated; D64.9 Anemia, unspecified; F11.10 Opioid abuse, uncomplicated; F10.10 Alcohol abuse, uncomplicated; F19.20 Other psychoactive substance dependence, uncomplicated; Z99.11 Dependence on respirator [ventilator] status; Z99.2 Dependence on renal dialysis
CPT/HCPCS: 36415; 36569; 36600; 70450; 71045; 76705; 80048; 80053; 80074; 80307; 81001; 82140; 82550; 82805; 82962; 83690; 83735; 84100; 84436; 84443; 85007; 85014; 85018; 85025; 85027; 85610; 85730; 87040; 87070; 87077; 87081; 87186; 87205; 90935; 93005; 93971; 94002; 94003; 94640; 95819; 96365; 96375; 99291; G0378; J1100; J1642; J1815; J2250; J2543; J7060; P9047

== ENCOUNTER 2021-12-31 11:08 | Inpatient (IN) | payer OTHER ==
[2021-12-31] VITALS (55 sets, daily range): BP systolic 99–168; BP diastolic 39–93
[~2021-12-31] VITALS: Ht 30.5 cm; Wt 60.1 kg
[2021-12-31] MEDS: ACCU-CHEK COMFORT CURVE STRIP VI SCH ×6 (12:00→22:36)
[2021-12-31] MEDS: SODIUM CHL 0.9% IV SCH (12:00)
[2021-12-31] MEDS: NOREPINEPHRINE 8 MG/250ML KIT 250 ML IV SCH (12:00)
[2021-12-31] MEDS: VASOPRESSIN IV SCH (12:00)
[2021-12-31] MEDS: ARTIFICIAL TEARS 15ml EACHEYE SCH ×6 (12:00→22:36)
[2021-12-31] MEDS ORDERED: BUMETANIDE INJECTION 25 MG in GIVE UN-DILUTED 0 ML IV SCH (12:15)
[2021-12-31 12:59] LABS: Urine Bacteria FEW /hpf (None Seen); Urine Blood 3+ /uL (Negative); Urine Specific Gravity 1.011 (1.001-1.035); Urine WBC 137 /hpf (0 - 3)
[2021-12-31 13:29] LABS: Basophils # (auto) 0.1 10 ^3/uL (0-0.2); Eosinophils # (auto) 0.2 10 ^3/uL (0-0.8)
[2021-12-31 13:30] LABS: Basophils % (auto) 0.7 % (0.0-2.0); Eosinophils % (auto) 1.2 % (0.0-7.0); Hematocrit 19.8 % (41.0-53.0); Lymphocytes # (auto) 1.6 10 ^3/uL (0.4-5.4); Lymphocytes % (auto) 12.4 % (10.0-50.0); Mean Corpuscular Hemoglobin 27.9 pg (28.0-32.0); Mean Corpuscular Hgb Conc. 33.8 g/dL (32.0-36.0); Mean Corpuscular Volume 82.7 fL (80.0-100.0); Monocytes # (auto) 1.8 10 ^3/uL (0-1.3); Neutrophils # (auto) 9.1 10 ^3/uL (1.6-8.6); Neutrophils % (auto) 71.7 % (37.0-80.0); Red Blood Cells 2.39 10^6/uL (4.5-5.90); Red Cell Distribution Width 12.7 % (11.8-14.3); White Blood Cell 12.7 10^3/uL (4.4-10.8)
[2021-12-31 13:33] LABS: Hemoglobin 6.7 g/dL (13.5-17.5)
[2021-12-31] MEDS: SODIUM ZIRCONIUM CYCL 10 GM PAK PO SCH ×2 (13:44→21:48)
[2021-12-31 13:46] LABS: Albumin 3.1 g/dL (3.4-5.0); BUN/Creatinine Ratio 9.6; Calcium 8.4 mg/dL (8.5-10.1); Magnesium 2.7 mg/dL (1.6-2.6)
[2021-12-31 13:51] LABS: Bilirubin, Total 0.5 mg/dL (0.2-1.0); Total Protein 7.5 g/dL (6.4-8.2)
[2021-12-31 13:52] LABS: INR 1.18 (0.9-1.15); Partial Thromboplastin Time 41.7 sec (23.6-33.0)
[2021-12-31 14:35] LABS: Bilirubin, Direct 0.3 mg/dL (0-0.2)
[2021-12-31 14:38] LABS: Phosphorus 10.2 mg/dL (2.5-4.90); Potassium 6.2 mmol/L (3.5-5.1)
[2021-12-31] MEDS ORDERED: DOBUTamine 1000MCG/ML 250 ML IV SCH (15:15)
[2021-12-31 18:30] LABS: Urine Bacteria NONE SEEN /hpf (None Seen); Urine Blood 3+ /uL (Negative); Urine Mucus FEW (None Seen); Urine Specific Gravity 1.015 (1.001-1.035); Urine WBC 134 /hpf (0 - 3)
[2021-12-31] MEDS: VANCOMYCIN 1GM/250ML 250 ML IV SCH (18:36)
[2021-12-31 20:53] LABS: Albumin 2.5 g/dL (3.4-5.0); Calcium 8.4 mg/dL (8.5-10.1); Magnesium 3.3 mg/dL (1.6-2.6)
[2021-12-31 21:00] LABS: BUN/Creatinine Ratio 10.4; Bilirubin, Direct 0.4 mg/dL (0-0.2); Bilirubin, Total 0.8 mg/dL (0.2-1.0); Total Protein 6.8 g/dL (6.4-8.2)
[2021-12-31 21:03] LABS: Potassium 6.8 mmol/L (3.5-5.1)
[2021-12-31 21:05] LABS: Phosphorus 11.5 mg/dL (2.5-4.90)
[2021-12-31 21:31] LABS: INR 1.2 (0.9-1.15); Partial Thromboplastin Time 41.2 sec (23.6-33.0)
[2021-12-31] MEDS: PIPERACILLIN-TAZOB 2.25GM 50 ML IV SCH ×2 (21:50→22:00)
[2021-12-31] MEDS ORDERED: PIPERACILLIN-TAZOB 2.25GM 50 ML IV SCH (22:00)
[2022-01-01] VITALS (57 sets, daily range): BP systolic 83–161; BP diastolic 43–89
[2022-01-01 01:47] LABS: INR 1.21 (0.9-1.15); Partial Thromboplastin Time 41.4 sec (23.6-33.0)
[2022-01-01 01:59] LABS: Basophils # (auto) 0.1 10 ^3/uL (0-0.2); Basophils % (auto) 0.6 % (0.0-2.0); Eosinophils # (auto) 0.1 10 ^3/uL (0-0.8); Hematocrit 26.4 % (41.0-53.0); Hemoglobin 8.9 g/dL (13.5-17.5); Lymphocytes # (auto) 1.3 10 ^3/uL (0.4-5.4); Lymphocytes % (auto) 9.6 % (10.0-50.0); Mean Corpuscular Hemoglobin 27.4 pg (28.0-32.0); Mean Corpuscular Hgb Conc. 33.6 g/dL (32.0-36.0); Mean Corpuscular Volume 81.6 fL (80.0-100.0); Monocytes # (auto) 2.2 10 ^3/uL (0-1.3); Monocytes % (auto) 16.4 % (0.0-12.0); Neutrophils # (auto) 9.6 10 ^3/uL (1.6-8.6); Neutrophils % (auto) 72.4 % (37.0-80.0); Red Blood Cells 3.23 10^6/uL (4.5-5.90); Red Cell Distribution Width 14.7 % (11.8-14.3); White Blood Cell 13.3 10^3/uL (4.4-10.8)
[2022-01-01 02:07] LABS: Albumin 2.6 g/dL (3.4-5.0)
[2022-01-01 02:08] LABS: Calcium 8.5 mg/dL (8.5-10.1); Magnesium 2.8 mg/dL (1.6-2.6)
[2022-01-01 02:13] LABS: BUN/Creatinine Ratio 10.4
[2022-01-01] MEDS: ACCU-CHEK COMFORT CURVE STRIP VI SCH ×7 (02:24→12:00)
[2022-01-01] MEDS: ARTIFICIAL TEARS 15ml EACHEYE SCH ×7 (02:24→12:19)
[2022-01-01 02:30] LABS: Bilirubin, Direct 0.5 mg/dL (0-0.2)
[2022-01-01 03:12] LABS: Bilirubin, Total 0.9 mg/dL (0.2-1.0)
[2022-01-01] MEDS ORDERED: DEXTROSE (50%) 50ML SYRG IV ONE (05:45)
[2022-01-01] MEDS: SODIUM ZIRCONIUM CYCL 10 GM PAK PO SCH (06:00)
[2022-01-01 06:27] LABS: Potassium 7.1 mmol/L (3.5-5.1)
[2022-01-01 06:42] LABS: Basophils # (auto) 0.1 10 ^3/uL (0-0.2); Basophils % (auto) 0.5 % (0.0-2.0); Eosinophils # (auto) 0.2 10 ^3/uL (0-0.8); Eosinophils % (auto) 1.1 % (0.0-7.0); Hematocrit 26.2 % (41.0-53.0); Hemoglobin 9.2 g/dL (13.5-17.5); Lymphocytes # (auto) 1.6 10 ^3/uL (0.4-5.4); Lymphocytes % (auto) 11.3 % (10.0-50.0); Mean Corpuscular Hemoglobin 28.6 pg (28.0-32.0); Mean Corpuscular Hgb Conc. 35.1 g/dL (32.0-36.0); Mean Corpuscular Volume 81.4 fL (80.0-100.0); Monocytes # (auto) 2.1 10 ^3/uL (0-1.3); Monocytes % (auto) 14.9 % (0.0-12.0); Neutrophils # (auto) 10.1 10 ^3/uL (1.6-8.6); Neutrophils % (auto) 72.2 % (37.0-80.0); Nucleated Red Blood Cells % 0.1 %; Red Blood Cells 3.21 10^6/uL (4.5-5.90); Red Cell Distribution Width 14.7 % (11.8-14.3)
[2022-01-01 06:45] LABS: INR 1.22 (0.9-1.15); Partial Thromboplastin Time 39.9 sec (23.6-33.0)
[2022-01-01 07:16] LABS: Albumin 2.5 g/dL (3.4-5.0); BUN/Creatinine Ratio 10.8; Bilirubin, Direct 0.4 mg/dL (0-0.2); Bilirubin, Total 0.8 mg/dL (0.2-1.0); Magnesium 2.8 mg/dL (1.6-2.6); Total Protein 7.1 g/dL (6.4-8.2)
[2022-01-01 07:42] LABS: Phosphorus 14.7 mg/dL (2.5-4.90); Potassium 6.8 mmol/L (3.5-5.1)
[2022-01-01] MEDS ORDERED: SODIUM ZIRCONIUM CYCL 10 GM PAK PO ONE (08:15)
[2022-01-01] MEDS ORDERED: FUROSEMIDE 100 MG/10ML VIAL IV ONE (08:15)
[2022-01-01] MEDS ORDERED: metOLazone 5 MG TAB PO ONE (08:15)
[2022-01-01] MEDS ORDERED: VANCOMYCIN 1GM/250ML 250 ML IV SCH (10:00)
[2022-01-01] MEDS: VANCOMYCIN 1GM/250ML 250 ML IV SCH (10:14)
[2022-01-01] MEDS: PIPERACILLIN-TAZOB 2.25GM 50 ML IV SCH (10:14)
[2022-01-01] MEDS: SODIUM CHL 0.9% IV SCH (12:00)
[2022-01-01] MEDS: VASOPRESSIN IV SCH (12:00)
[2022-01-01] MEDS: NOREPINEPHRINE 8 MG/250ML KIT 250 ML IV SCH (12:00)
[2022-01-01 14:10] LABS: INR 1.29 (0.9-1.15)
[2022-01-01 14:39] LABS: Albumin 2.3 g/dL (3.4-5.0); Magnesium 3.1 mg/dL (1.6-2.6)
[2022-01-01 14:43] LABS: BUN/Creatinine Ratio 10.4; Bilirubin, Direct 0.4 mg/dL (0-0.2)
[2022-01-01 14:48] LABS: Potassium 6.7 mmol/L (3.5-5.1)
== END 2021-12-31 11:30 | DRG 296 ==
LOC: OR 1 11:08 → ICU WEST 11:09
PROVIDERS: ATTEND Internal Medicine
PROC: 30233N1 Transfusion of Nonautologous Red Blood Cells into Peripheral Vein, Percutaneous Approach (ICD-10-PCS; principal; 2021-12-31)
PROC: 5A1935Z Respiratory Ventilation, Less than 24 Consecutive Hours (ICD-10-PCS; 2021-12-31)
PROC: 0BH17EZ Insertion of Endotracheal Airway into Trachea, Via Natural or Artificial Opening (ICD-10-PCS; 2021-12-31)
DX: I46.9 Cardiac arrest, cause unspecified (principal); G93.6 Cerebral edema; G93.1 Anoxic brain damage, not elsewhere classified; F19.20 Other psychoactive substance dependence, uncomplicated
CPT/HCPCS: 36415; 36600; 71045; 74018; 76700; 80053; 80202; 81001; 82150; 82248; 82330; 82550; 82553; 82805; 82962; 82977; 83615; 83690; 83735; 83930; 84100; 84484; 85025; 85610; 85730; 86850; 86900; 86901; 86920; 87040; 87086; G0378; J2543